=== PATIENT | female | born 1985 ===

== ENCOUNTER 2016-11-17 16:32 | Emergency (ER) | payer OTHER ==
[2016-11-17] MEDS ORDERED: Sodium Chloride 0.9% 1,000 ML IV STA (17:04)
--- NOTE | 2016-11-17 17:27 | ED PDOC ---
HPI: Abdomen Time Seen by Provider: 11/17/16 16:43 Chief Complaint (Nursing): Abdominal Pain Chief Complaint (Provider): Abdominal Pain History Per: Patient History/Exam Limitations: no limitations Onset/Duration Of Symptoms: Days (x2-3 days) Current Symptoms Are (Timing): Still Present Additional Complaint(s): Katerin Quiroga is a 30 [place]ber[place] old female who presents to the emergency department with a complaint of lower abdominal pain associated with nausea, vomiting, chills, and urine discomfort ongoing for 2-3 days. Denies any diarrhea or fevers. She was seen by her PCP at [facility] who advised her to go to the ED where she had bloodwork, CT ABD/Pelvis with contrast , and US of Pelvis done. All testings were negative except US which showed uterine fibroids. Patient was discharged with antibiotics which she is currently taking since yesterday but abdominal pain is still persistent. PMD: Fab Macias MD Past Medical History Reviewed: Historical Data, Nursing Documentation, Vital Signs Vital Signs: Last Vital Signs Temp 98.7 F 11/17/16 16:34 Pulse 68 11/17/16 16:34 Resp 18 11/17/16 16:34 BP 143/101 H 11/17/16 16:34 Pulse Ox 99 11/17/16 17:43 - Medical History PMH: No Chronic Diseases - Surgical History Surgical History: No Surg Hx - Family History Family History: States: Unknown Family Hx - Social History Current smoker - smoking cessation education provided: No Alcohol: None Drugs: Denies - Home Medications Home Medications: Ambulatory Orders Medication Instructions Recorded Naproxen [Naprosyn] 500 mg PO Q12H #20 tab 05/03/15 Naproxen [Naprosyn] 500 mg PO BID PRN #20 tablet 11/17/16 Phenazopyridine HCl [Pyridium] 100 mg PO TID #9 tab 11/17/16 - Allergies Allergies/Adverse Reactions: Allergies Allergy/AdvReac Type Severity Reaction Status Date / Time No Known Allergies Allergy Verified 05/03/15 15:08 Review of Systems ROS Statement: Except As Marked, All Systems Reviewed And Found Negative Constitutional: Positive for: Chills. Negative for: Fever Gastrointestinal: Positive for: Nausea, Vomiting (b8tbdtp in the last 24 hours) , Abdominal Pain (lower abdomen). Negative for: Diarrhea Genitourinary Female: Positive for: Dysuria (discomfort) Physical Exam - Reviewed Nursing Documentation Reviewed: Yes Vital Signs Reviewed: Yes - Physical Exam Appears: Positive for: Well, Non-toxic, No Acute Distress Head Exam: Positive for: ATRAUMATIC, NORMAL INSPECTION, NORMOCEPHALIC Skin: Positive for: Normal Color, Warm, Dry Neck: Positive for: Normal, Painless ROM, Supple Cardiovascular/Chest: Positive for: Regular Rate, Rhythm. Negative for: Murmur Respiratory: Positive for: Normal Breath Sounds. Negative for: Wheezing Gastrointestinal/Abdominal: Positive for: Normal Exam, Bowel Sounds, Tenderness (lower abdomen bilaterally) Pelvic Exam: Negative for: External Exam Normal (pain in pubic area) Back: Positive for: Normal Inspection. Negative for: L CVA Tenderness, R CVA Tenderness Extremity: Positive for: Normal ROM Neurologic/Psych: Positive for: Alert, Oriented - Laboratory Results Result Diagrams: 11/17/16 17:00 11/17/16 17:00 - ECG O2 Sat by Pulse Oximetry: 99 (RA) Pulse Ox Interpretation: Normal - Progress Re-evaluation Time: 18:10 Condition: Re-examined, Improving,but remains with symptoms Medical Decision Making Medical Decision Making: Initial Impression: Lower abdominal pain Initial Plan: * Labs * Lipase * Urine dipstick * Urine * Toradol 30mg IV * NS 1,000 ml IV per 1,000 mls/hr * Zofran Injection 4g IVP * Pyridium 100mg PO * Reevaluate ~ Scribe Attestation: Documented by Moon Paulino, acting as a scribe for Nemo Elliott MD. Provider Scribe Attestation: All medical record entries made by the Scribe were at my direction and personally dictated by me. I have reviewed the chart and agree that the record accurately reflects my personal performance of the history, physical exam, medical decision making, and the department course for this patient. I have also personally directed, reviewed, and agree with the discharge instructions and disposition. Disposition - Clinical Impression Clinical Impression: Abdominal pain, UTI (urinary tract infection) - Patient ED Disposition Is Patient to be Admitted: No Doctor Will See Patient In The: Office Counseled Patient/Family Regarding: Diagnosis, Need For Followup, Rx Given - Disposition [facility] [Outside] Disposition: Routine/Home Disposition Time: 18:12 Condition: IMPROVED Additional Instructions: continue with antibiotics prescribed by the doctor who saw you in the ER yesterday. Prescriptions: Naproxen [Naprosyn] 500 mg PO BID PRN #20 tablet PRN Reason: Pain, Moderate (4-7) Phenazopyridine HCl [Pyridium] 100 mg PO TID #9 tab Instructions: Urinary Tract Infection in Women (ED) Print Language: SERBIAN - POA Present On Arrival: None
[2016-11-17 17:28] LABS: BASO % 0.3 % (0.0-2.0); EOS % 0.2 % (0.0-4.0); LYMPH # 1.4 K/uL (1.0-4.3); MEAN CELL VOLUME 85.1 fl (81.0-99.0); MEAN CORPUSCULAR HEMOGLOBIN 27.5 pg (27.0-31.0); MEAN CORPUSCULAR HGB CONC 32.4 g/dL (33.0-37.0); MEAN PLATELET VOLUME 7.8 fl (7.2-11.7); MONO # 0.5 K/uL (0.0-0.8); MONO % 4.8 % (0.0-10.0); NEUT # 8.2 K/uL (1.8-7.0); NEUT % 80.7 % (50.0-75.0); RED CELL DISTRIBUTION WIDTH 14.1 % (11.5-14.5); WHITE BLOOD COUNT 10.2 K/uL (4.8-10.8)
[2016-11-17 17:37] LABS: ALB/GLOB RATIO 1.3 (1.0-2.1); ALKALINE PHOSPHATASE 105 U/L (38-126); ALT/SGPT 40 U/L (9-52); AST/SGOT 27 U/L (14-36); BILIRUBIN,TOTAL 0.5 mg/dl (0.2-1.3); BLOOD UREA NITROGEN 7 mg/dl (7-17); CALCIUM 9.2 mg/dL (8.4-10.2); CARBON DIOXIDE 26 mmol/L (22-30); CHLORIDE 104 mmol/L (98-107); GFR AFRICAN-AMERICAN > 60; GLUCOSE,RANDOM 100 mg/dL (65-105); LIPASE 61 U/L (23-300); POTASSIUM 3.7 MMOL/L (3.6-5.0); SODIUM 140 mmol/l (132-148); TOTAL PROTEIN 7.9 G/DL (6.3-8.2)
[2016-11-17 19:09] VITALS: BP 132/74; PULSE 85; RESP 19; TEMP 98.3; O2SAT 100
== END 2016-11-17 19:10 | disposition home or self-care (01) ==
LOC: H.ER 16:32
DX: N39.0 Urinary tract infection, site not specified (principal)

== ENCOUNTER 2017-04-16 13:07 | Emergency (ER) | payer SELFPAY ==
[2017-04-16 13:13] VITALS: RESP 16; TEMP 97.8; O2SAT 100
[2017-04-16] MEDS ORDERED: Oxycodone/Acetaminophen 5/325 mg Tab PO STA (13:26)
--- NOTE | 2017-04-16 13:36 | ED PDOC ---
HPI: Female Pain Time Seen by Provider: 04/16/17 13:16 Chief Complaint (Nursing): Female Genitourinary Chief Complaint (Provider): Vaginal Bleeding History Per: Patient History/Exam Limitations: no limitations Onset/Duration Of Symptoms: Days (x1) Current Symptoms Are (Timing): Still Present Additional Complaint(s): Katerin Quiroga is a 31 year old female with a history of fibroids and prior appendectomy that presents to the ED with a chief complaint of suprapubic pain and vaginal bleeding. Patient reports that she had her usual menses two weeks ago, but began to experience her pain and bleeding yesterday. Denies any other vaginal discharge. She reports that she is not filling any pads but just having vaginal bleeding that she notices when wiping. She states that she went to the [facility] today, who sent her to the ED for referral. Patient denies any fever, nausea, vomiting, constipation, dysuria, or hematuria, and reports that she has not taken any medication for her pain. Last Menstral Period: 2 wks ago Past Medical History Reviewed: Historical Data, Nursing Documentation, Vital Signs Vital Signs: Last Vital Signs Temp 97.8 F 04/16/17 13:10 Pulse 66 04/16/17 13:10 Resp 16 04/16/17 13:10 BP 155/107 H 04/16/17 13:10 Pulse Ox 100 04/16/17 13:10 - Medical History Other PMH: fibroids - Surgical History Surgical History: Appendectomy - Family History Family History: States: Unknown Family Hx - Allergies Allergies/Adverse Reactions: Allergies Allergy/AdvReac Type Severity Reaction Status Date / Time No Known Allergies Allergy Verified 04/16/17 13:10 Review of Systems ROS Statement: Except As Marked, All Systems Reviewed And Found Negative Constitutional: Negative for: Fever Cardiovascular: Negative for: Chest Pain Respiratory: Negative for: Cough, Shortness of Breath, SOB with Exertion Gastrointestinal: Positive for: Abdominal Pain (suprapubic pain). Negative for : Nausea, Vomiting, Diarrhea, Constipation Genitourinary Female: Positive for: Vaginal Bleeding. Negative for: Dysuria, Hematuria, Vaginal Discharge (no other discharge) Neurological: Negative for: Weakness, Numbness Physical Exam - Reviewed Nursing Documentation Reviewed: Yes Vital Signs Reviewed: Yes - Physical Exam Appears: Positive for: Non-toxic, No Acute Distress Head Exam: Positive for: ATRAUMATIC, NORMOCEPHALIC Skin: Positive for: Normal Color, Warm Eye Exam: Positive for: Normal appearance, EOMI, PERRL Cardiovascular/Chest: Positive for: Regular Rate, Rhythm. Negative for: Murmur Respiratory: Positive for: Normal Breath Sounds. Negative for: Wheezing Gastrointestinal/Abdominal: Positive for: Normal Exam, Soft. Negative for: Tenderness Neurologic/Psych: Positive for: Alert, Oriented. Negative for: Motor/Sensory Deficits - Laboratory Results Result Diagrams: 04/16/17 13:50 04/16/17 13:50 - ECG O2 Sat by Pulse Oximetry: 100 (RA) Pulse Ox Interpretation: Normal Medical Decision Making Medical Decision Making: Impression: Vaginal Bleeding. No urinary complaints. Plan: * CMP * CBC * PTT * PT * Urine Preg * Beta-HCG * Percocet 1 tab PO * Reevaluation test is negative, bleeding is likely secondary to fibroids. Will get hemoglobin to rule out anemia and then refer to TIMBER REPAIRER. 1:42PM Prior ultrasound showed fibroids. No urinary complaints. 2:33PM Hgb:12.7. Platelets and coagulation studies WNL. BHCG negative. Patient has hx of fibroids with recent ultrasound showing same. Patient reports persistent 10/10 pain. However, abdomen soft NT/ND. WIll order toradol and get u/s to r.o torsion. (hx of appendectomy) 3:12PM UA negative for nitrates but shows trace leukocytes. Denies dysuria. 5:08PM FINDINGS: UTERUS: Measures 12.4 x 6.0 x 5.7 cm. The uterus appears somewhat enlarged and is anteverted with an anterior fundal myoma identified bridging the sub serosal and submucous spaces measuring 5.0 x 4.9 x 4.0 cm. No additional myometrial lesions appreciable. No fibroid or other mass lesion seen. ENDOMETRIUM: Measures 6.0 mm in diameter. Unremarkable. CERVIX: Nabothian cysts identified the anterior cervix which is otherwise unremarkable. RIGHT OVARY: The right ovary is not identified, however, there are no suspicious right adnexal findings otherwise. LEFT OVARY: Measures 3.5 x 3.4 x 1.8 cm. No solid mass. Normal flow. FREE FLUID: No significant free fluid noted. OTHER FINDINGS: None. IMPRESSION: A 5.0 cm anterior fundal myoma is appreciated with the uterus otherwise unremarkable. Nonfocal endometrium. Cervical nabothian cysts identified. Unremarkable left ovary. Nonvisualized right ovary. Patient was made aware of ultrasound. On reevaluation, abdomen is soft NT/ND and she denies pain. She will follow-up with her securities clerk for painful and irregular menses. ---- Scribe Attestation: Documented by Svetlana Wolfe, acting as a scribe for Serene Reynolds MD. Provider Scribe Attestation: All medical record entries made by the Scribe were at my direction and personally dictated by me. I have reviewed the chart and agree that the record accurately reflects my personal performance of the history, physical exam, medical decision making, and the department course for this patient. I have also personally directed, reviewed, and agree with the discharge instructions and disposition. Disposition - Clinical Impression Clinical Impression: Uterine fibroid, Irregular menses, Painful menstrual flow - Disposition Referrals: [facility] PROVID[facility]ZIEL [Primary Care Provider[facility] - [facility] Disposition: Routine/Home Disposition Time: 17:11 Condition: GOOD Additional Instructions: Follow-up with senior auditor for further evaluation of painful and irregular menses within 1 week. Return to ED if condition worsens. Instructions: Uterine Fibroids (ED) Forms: [employer] (Uzbek)
[2017-04-16 14:19] LABS: BASO % 0.4 % (0.0-2.0); EOS # 0.1 K/uL (0.0-0.7); EOS % 0.9 % (0.0-4.0); LYMPH # 1.4 K/uL (1.0-4.3); MEAN CELL VOLUME 86.3 fl (81.0-99.0); MEAN CORPUSCULAR HGB CONC 32.5 g/dL (33.0-37.0); MEAN PLATELET VOLUME 8.1 fl (7.2-11.7); MONO # 0.4 K/uL (0.0-0.8); MONO % 5.2 % (0.0-10.0); NEUT # 5.8 K/uL (1.8-7.0); NEUT % 75.5 % (50.0-75.0); RED CELL DISTRIBUTION WIDTH 13.9 % (11.5-14.5); WHITE BLOOD COUNT 7.7 K/uL (4.8-10.8)
[2017-04-16 14:27] LABS: ALB/GLOB RATIO 1.1 (1.0-2.1); ALKALINE PHOSPHATASE 87 U/L (38-126); ALT/SGPT 30 U/L (9-52); AST/SGOT 18 U/L (14-36); BILIRUBIN,TOTAL 0.2 mg/dl (0.2-1.3); BLOOD UREA NITROGEN 12 mg/dl (7-17); CALCIUM 8.4 mg/dL (8.4-10.2); CARBON DIOXIDE 27 mmol/L (22-30); CHLORIDE 106 mmol/L (98-107); GFR AFRICAN-AMERICAN > 60; GLUCOSE,RANDOM 82 mg/dL (65-105); POTASSIUM 3.7 MMOL/L (3.6-5.0); SODIUM 140 mmol/l (132-148)
[2017-04-16 14:31] LABS: PARTIAL THROMBOPLASTIN TIME 25.3 Seconds (25.6-37.1)
--- NOTE | 2017-04-16 17:08 | US ---
HISTORY: vaginal bleeding, suprapubic pain COMPARISON: Abdomen pelvis CT examination 12/27/2011. TECHNIQUE: Transabdominal and transvaginal pelvic ultrasound were performed with longitudinal and transverse images submitted for interpretation. FINDINGS: UTERUS: Measures 12.4 x 6.0 x 5.7 cm. The uterus appears somewhat enlarged and is anteverted with an anterior fundal myoma identified bridging the sub serosal and submucous spaces measuring 5.0 x 4.9 x 4.0 cm. No additional myometrial lesions appreciable. No fibroid or other mass lesion seen. ENDOMETRIUM: Measures 6.0 mm in diameter. Unremarkable. CERVIX: Nabothian cysts identified the anterior cervix which is otherwise unremarkable. RIGHT OVARY: The right ovary is not identified, however, there are no suspicious right adnexal findings otherwise. LEFT OVARY: Measures 3.5 x 3.4 x 1.8 cm. No solid mass. Normal flow. FREE FLUID: No significant free fluid noted. OTHER FINDINGS: None. IMPRESSION: A 5.0 cm anterior fundal myoma is appreciated with the uterus otherwise unremarkable. Nonfocal endometrium. Cervical nabothian cysts identified. Unremarkable left ovary. Nonvisualized right ovary.
[2017-04-16 17:14] VITALS: BP 135/80; PULSE 75
== END 2017-04-16 17:33 | disposition home or self-care (01) ==
LOC: H.ER 13:07
DX: D25.9 Leiomyoma of uterus, unspecified (principal); N88.8 Other specified noninflammatory disorders of cervix uteri
CPT/HCPCS: 76830; 80053; 81025; 84702; 85025; 85610; 85730; 96374; 99282; J1885

== ENCOUNTER 2017-08-02 09:02 | Emergency (ER) | payer SELFPAY ==
--- NOTE | 2017-08-02 09:51 | ED PDOC ---
HPI: Female Pain Time Seen by Provider: 08/02/17 09:15 History Per: Patient Onset/Duration Of Symptoms: Other (2 weeks) Current Symptoms Are (Timing): Still Present Severity: Moderate Pain Scale Rating Of: 3 Quality Of Discomfort: Cramping Associated Symptoms: denies: Fever, Nausea, Vomiting, Diarrhea, Urinary Symptoms Additional Complaint(s): Right flank and right pel ajit pain x 2 weeks. No NVD. No urinary sxs. Assoc with vaginal bleeding. Sxs x 2 weeks Abnormal Vaginal Bleeding: Yes Past Medical History - Medical History Other PMH: fibroids - Surgical History Surgical History: Appendectomy - Family History Family History: States: Unknown Family Hx - Home Medications Home Medications: Ambulatory Orders Medication Instructions Recorded Ciprofloxacin HCl [Cipro] 500 mg PO BID #20 tab 08/02/17 Naproxen [Naprosyn] 500 mg PO Q12H #20 tab 08/02/17 Tamsulosin [Flomax] 0.4 mg PO DAILY #5 cap 08/02/17 - Allergies Allergies/Adverse Reactions: Allergies Allergy/AdvReac Type Severity Reaction Status Date / Time No Known Allergies Allergy Verified 04/16/17 13:10 Review of Systems Constitutional: Negative for: Fever Gastrointestinal: Positive for: Abdominal Pain Genitourinary Female: Positive for: Vaginal Bleeding. Negative for: Dysuria, Frequency Musculoskeletal: Positive for: Back Pain Physical Exam - Physical Exam Appears: Positive for: Non-toxic, No Acute Distress Skin: Positive for: Normal Color, Warm, DRY Gastrointestinal/Abdominal: Positive for: Bowel Sounds, Soft, Tenderness (right lower quad) Pelvic Exam: Positive for: External Exam Normal, No Cerv. Motion Tender, Blood ( scant blood), Other (enlarged irregular uterus). Negative for: Tender Adnexa - Laboratory Results Result Diagrams: 08/02/17 10:20 08/02/17 10:20 Medical Decision Making Medical Decision Making: Tolerating PO, non toxic, no evidence of sepsis or abnormality of kidneys on CT. Disposition - Clinical Impression Clinical Impression: UTI (urinary tract infection), Uterine fibroid, Kidney stones - Patient ED Disposition Is Patient to be Admitted: No Counseled Patient/Family Regarding: Studies Performed, Diagnosis, Need For Followup, Rx Given - Disposition Referrals: [facility] [Outside] Brodie Brian MD [Medical Doctor] - Disposition: Routine/Home Disposition Time: 17:11 Condition: FAIR Prescriptions: Ciprofloxacin HCl [Cipro] 500 mg PO BID #20 tab Naproxen [Naprosyn] 500 mg PO Q12H #20 tab Tamsulosin [Flomax] 0.4 mg PO DAILY #5 cap Instructions: Uterine Fibroids, Renal Colic, Urinary Tract Infections in Adults
[2017-08-02 10:05] VITALS: RESP 18
[2017-08-02 10:31] LABS: BASO % 0.6 % (0.0-2.0); EOS # 0.1 K/uL (0.0-0.7); HEMOGLOBIN 12.9 g/dL (12.0-16.0); LYMPH # 1.5 K/uL (1.0-4.3); LYMPH % 24.3 % (20.0-40.0); MEAN CELL VOLUME 84.3 fl (81.0-99.0); MEAN CORPUSCULAR HEMOGLOBIN 28.4 pg (27.0-31.0); MEAN CORPUSCULAR HGB CONC 33.7 g/dL (33.0-37.0); MEAN PLATELET VOLUME 8.2 fl (7.2-11.7); MONO # 0.4 K/uL (0.0-0.8); MONO % 5.8 % (0.0-10.0); NEUT # 4.3 K/uL (1.8-7.0); NEUT % 68.3 % (50.0-75.0); RBC 4.55 Mil/uL (3.80-5.20); WHITE BLOOD COUNT 6.3 K/uL (4.8-10.8)
[2017-08-02 10:54] LABS: ALB/GLOB RATIO 1.1 (1.0-2.1); ALBUMIN 3.7 g/dL (3.5-5.0); ALT/SGPT 23 U/L (9-52); AST/SGOT 24 U/L (14-36); BLOOD UREA NITROGEN 12 mg/dl (7-17); CALCIUM 9.3 mg/dL (8.4-10.2); GFR AFRICAN-AMERICAN > 60; GFR NON-AFRICAN AMERICAN > 60
[2017-08-02 11:19] LABS: SQUAMOUS EPITHIAL 196 /hpf (0-5); URINE BACTERIA MANY (<OCC); URINE BILIRUBIN NEGATIVE (NEGATIVE); URINE BLOOD MODERATE (NEGATIVE); URINE CLARITY TURBID (Clear); URINE COLOR YELLOW (YELLOW); URINE GLUCOSE (UA) NEG (Normal); URINE LEUKOCYTE ESTERASE MOD Leu/uL (Negative); URINE PROTEIN >=500 mg/dL (NEGATIVE); URINE UROBILINOGEN 0.2-1.0 mg/dL (0.2-1.0)
--- NOTE | 2017-08-02 11:20 | US ---
HISTORY: fibroids COMPARISON: Pelvic ultrasonography 04/16/2017. TECHNIQUE: Transabdominal and transvaginal pelvic ultrasound was performed with longitudinal and transverse images submitted for interpretation. FINDINGS: UTERUS: Measures 12.0 x 8.6 x 5.5 cm. Uterus is enlarged and anteverted with a large myoma again identified at the anterior fundus measuring 5.4 x 5.9 x 5.8 cm, and previously measuring 5.1 x 4.9 x 4.2 cm. The remainder of the myometrium is unremarkable. ENDOMETRIUM: Measures 7.5 mm in diameter. Unremarkable. CERVIX: Nabothian cysts are reiterated. RIGHT OVARY: Measures 3.2 x 2.3 x 2.0 cm. No solid mass. Normal flow. No suspicious findings. LEFT OVARY: Not identified with the left adnexal compartment obscured by overlying bowel as well as uterine fibroid changes. FREE FLUID: No significant free fluid noted. OTHER FINDINGS: None. IMPRESSION: A large anterior fundal myoma is slightly increased in size with an enlarged uterus again seen secondarily. Left adnexal compartment is obscured with left ovary not identified. The right ovary appears unremarkable.
[2017-08-02 15:51] LABS: VENOUS BLOOD GAS BASE EXCESS 1.9 mmol/L (0.0-2.0); VENOUS BLOOD GAS PCO2 41 mmHg (40-60); VENOUS BLOOD GAS PO2 40 mm/Hg (30-55); VENOUS BLOOD PH 7.42 (7.32-7.43)
--- NOTE | 2017-08-02 16:20 | CT ---
PROCEDURE: CT Abdomen and Pelvis without intravenous contrast HISTORY: pyelonephritis COMPARISON: Abdomen pelvis CT examination with contrast 07/20/2013 as well as 12/27/2011. TECHNIQUE: Helical CT of the abdomen and pelvis was performed without oral or intravenous contrast as per referring physician request.. Contrast Dose: None Radiation dose: Total exam DLP = 628.31 mGy-cm. This CT exam was performed using one or more of the following dose reduction techniques: Automated exposure control, adjustment of the mA and/or kV according to patient size, and/or use of iterative reconstruction technique. FINDINGS: LOWER THORAX: Cardiac volume appears enlarged mildly, but stable. LIVER: A stable tiny lucencies is seen at the dome of the liver. Unenhanced liver is otherwise unremarkable with prior enhancing lesion at the watershed region of the anterior liver not appreciated at this time. GALLBLADDER AND BILE DUCTS: Unremarkable. PANCREAS: Unremarkable. No gross lesion or ductal dilatation. SPLEEN: Unremarkable. ADRENALS: Unremarkable. No mass. KIDNEYS AND URETERS: Infrequent punctate intrarenal calculi identified both kidneys with 1 at the mid to lower pole right kidney and 2 at the upper pole left kidney. No obstructive uropathy identified bilaterally or perinephric reaction. VASCULATURE: Unremarkable. No aortic aneurysm. BOWEL: The bowel is nonobstructed. The stomach is distended with retained food. Limited fecal loading is seen throughout the large bowel. Postoperative changes are seen involving the cecum and distal ileum. The appendix is not identified. Consider possible prior appendectomy and potentially other bowel surgery. APPENDIX: See the section immediately above. PERITONEUM: Unremarkable. No free fluid. No free air. LYMPH NODES: Unremarkable. No enlarged lymph nodes. BLADDER: Unremarkable. REPRODUCTIVE: Unremarkable. BONES: No acute fracture. OTHER FINDINGS: None. IMPRESSION: No definite acute abdominal findings including bilateral kidneys which exhibit a few intrarenal calculi in each kidney but no perinephric reaction in this unenhanced examination. Further characterization of the abdominal and pelvic viscera can be provided by contrast CT as clinically warranted. Further clinical correlation is advised. Prior hepatic lesion not identified on this unenhanced examination which is not indicate resolution necessarily.
[2017-08-02 18:06] VITALS: BP 120/78; PULSE 70; TEMP 98.8; O2SAT 99
== END 2017-08-02 18:06 | disposition home or self-care (01) ==
LOC: H.ER 09:02
DX: N39.0 Urinary tract infection, site not specified (principal); D25.9 Leiomyoma of uterus, unspecified; N20.0 Calculus of kidney
CPT/HCPCS: 74176; 76830; 76856; 80053; 81003; 81025; 82803; 85025; 87040; 87086; 96365; 96375; 99283; J0696; J1885

== ENCOUNTER 2017-11-25 06:16 | Inpatient (IN) | payer BC, SELFPAY ==
[2017-11-24 09:52] VITALS: BMI 28.1
[2017-11-24 10:56] LABS: BASO % 0.6 % (0.0-2.0); EOS # 0.1 K/uL (0.0-0.7); HEMOGLOBIN 11.3 g/dL (12.0-16.0); LYMPH # 1.3 K/uL (1.0-4.3); LYMPH % 27.3 % (20.0-40.0); MEAN CELL VOLUME 80.7 fl (81.0-99.0); MEAN CORPUSCULAR HEMOGLOBIN 25.9 pg (27.0-31.0); MEAN CORPUSCULAR HGB CONC 32.1 g/dL (33.0-37.0); MEAN PLATELET VOLUME 7.8 fl (7.2-11.7); MONO # 0.3 K/uL (0.0-0.8); MONO % 7.2 % (0.0-10.0); NEUT % 62.9 % (50.0-75.0); RBC 4.38 Mil/uL (3.80-5.20); RED CELL DISTRIBUTION WIDTH 15.1 % (11.5-14.5); WHITE BLOOD COUNT 4.8 K/uL (4.8-10.8)
[2017-11-24 11:11] LABS: ALB/GLOB RATIO 1.2 (1.0-2.1); ALBUMIN 4.1 g/dL (3.5-5.0); ALT/SGPT 37 U/L (9-52); AST/SGOT 26 U/L (14-36); BLOOD UREA NITROGEN 13 mg/dl (7-17); CALCIUM 9.1 mg/dL (8.4-10.2); GFR AFRICAN-AMERICAN > 60; GFR NON-AFRICAN AMERICAN > 60
[2017-11-24 11:14] LABS: PARTIAL THROMBOPLASTIN TIME 28.2 Seconds (25.6-37.1); PROTHROMBIN TIME 10.8 Seconds (9.8-13.1)
--- NOTE | 2017-11-24 13:59 | CARD ---
APPROVED REPORT EKG Measurement Heart [id number] <Conclusion> Sinus bradycardia Otherwise normal ECG
[2017-11-25] MEDS ORDERED: Propofol 10 mg/ml Inj (20 ML) ONE (07:12)
[2017-11-25] MEDS ORDERED: ePHEDrine 50 mg/ml Inj ONE (07:12)
[2017-11-25] MEDS ORDERED: Rocuronium 10 mg/ml (5 ml) ONE ×2 (07:12→09:25)
[2017-11-25] MEDS ORDERED: Midazolam 2 MG/2 ML VIAL ONE (07:12)
[2017-11-25] MEDS ORDERED: Phenylephrine 10 mg/ml Inj ONE ×2 (07:13→07:23)
[2017-11-25] MEDS ORDERED: Bupivacaine HCl 0.25% PF (30 ml) Inj ONE (07:18)
[2017-11-25] MEDS ORDERED: Neostigmine 1:1000 (1 mg/ml) Inj ONE (07:22)
[2017-11-25] MEDS ORDERED: Succinylcholine 200 mg/10 ml Inj IV ONE (07:22)
[2017-11-25] MEDS ORDERED: Sevoflurane - Inhalation Anesthetic Liq (250 ml) ONE (07:23)
[2017-11-25] MEDS ORDERED: Desflurane Inhalation Anesthetic Liq (240 ml) ONE (07:23)
[2017-11-25] MEDS ORDERED: Lactated Ringer's 1,000 ML IV ONE ×2 (08:00→08:10)
[2017-11-25] MEDS ORDERED: Morphine 1 mg/ml preservative-free Inj(Duramorph) ONE (08:21)
[2017-11-25] MEDS ORDERED: Sterile Water 10 ML IV ONE (08:24)
[2017-11-25] MEDS ORDERED: Naloxone 0.4 mg/ml Inj (Adult) IVP PRN (10:21)
[2017-11-25] MEDS ORDERED: Oxycodone/Acetaminophen 5/325 mg Tab PO PRN (10:24)
[2017-11-25] MEDS: HYDROmorphone 0.5 mg/0.5 ml ISec IVP PRN ×3 (10:45→11:45)
[2017-11-25] MEDS: Lactated Ringer's 1,000 ML IV SCH ×2 (12:30→18:35)
--- NOTE | 2017-11-26 02:36 | OP ---
PROCEDURE DATE: 11/25/2017 PREOPERATIVE DIAGNOSES: Symptomatic fibroid uterus, menorrhagia, pelvic pain, and 2 previous sections. POSTOPERATIVE DIAGNOSES: Symptomatic fibroid uterus, menorrhagia, pelvic pain, and 2 previous sections. OPERATIONS PERFORMED: Robotic hysterectomy, cystoscopy with stent placement, ureterolysis. SURGEON: Emily Schaefer MD ASSEMBLER WIRE MESH GATE: Russell Nunez MD, who was helpful in taking care of the patient, creating exposure, obtaining hemostasis, and extraction of the specimen. The procedure would not have been possible without his assistance. OPERATIVE FINDINGS: A large irregular uterus with a prominent fundal myoma, anterior bladder adhesions secondary to previous cesarian deliveries. Normal ovaries and tubes that have been previously transected. DESCRIPTION OF PROCEDURE: After informed consent was obtained, the patient was taken to the operating room where she was given general anesthesia. She was then prepped and draped in a normal sterile fashion. The patient was placed in [place] stirrups, prepped and draped in a normal sterile fashion. Attention was then turned to urethra, where the cystoscope was inserted. Both right and left ureter were identified. The right ureter was then stented and indocyanine green was injected into the right ureter. Similar procedure was performed on the left. This was done in anticipation of the patient's two previous surgeries and a history of extensive abdominal adhesions from previous surgeon. A speculum was then inserted into vaginal. The cervix was visualized and grasped with a single tooth tenaculum. The cervix was gently dilated and a V-care uterine manipulator was inserted into the uterine cavity as a means to manipulate the uterus. Attention was then turned to the urethra, which in similar fashion, a Rosado catheter was inserted to monitor the patient's urinary output. Attention was then turned to the abdomen, approximately an 8 mm incision was made superior to the umbilicus. The abdomen was then tented upward and the Veress needle was inserted. Placement was confirmed with a fluid-filled syringe. The abdomen was then insufflated and an 8 mm robotic port was introduced into the abdominal cavity. Placement was confirmed with laparoscope. The abdomen was then surveyed with the findings noted above. Attention was then turned to approximately 5 cm superior to the right anterior iliac crest. Marcaine was infused, and an 8 mm incision was made, and a robotic port was introduced to the abdominal cavity. A similar procedure was performed on the left. Approximately 10 cm right and lateral to the umbilicus, an 8 mm incision was made and an 8 mm robotic port was introduced to the abdominal cavity. Then, a 5 mm incision was made approximately 10 cm left and lateral to the umbilicus. The patient was then placed in steep Trendelenburg, the bowel was swept away. The patient was docked to the robot. I broke scrub and proceeded to the surgical console. The instruments used for the surgery were PK dissector, Sagar SutureCut, scissor, and a needle driver/refuse collector. I then proceeded to the left utero-ovarian ligament where we serially coagulated and transected with the scissors. Attention was then turned to the right round ligament in a similar fashion, it was serially coagulated, and transected with the scissors. The vesicouterine peritoneum was then undermined with PK dissector and transected with the scissors. As I approached the V-Care cup anteriorly, we identified dense adhesions from her previous cesarian delivery. We then proceeded posteriorly on the uterus, we attempted to undermined the peritoneum with PK dissector ad encountered fibrotic tissue and transected it down at the level of the V-Care cup. The uterosacral ligament was serially coagulated and transected. There were adhesions, which were lysed using both sharp and blunt dissection. Attention was then turned to the ureters. Firefly technology was activated. The ureter was identified. The peritoneum was then grasped with the PK dissector and entered sharply with the scissors. The retroperitoneal space was then entered and the ureteral course was dissected and the ureter was pushed away laterally down to the uterine arteries .We then paid attention to the uterine arteries. They were serially coagulated and transected, taking care not to injure the ureter. Attention was then turned to the right side of the uterus, which in similar fashion, the utero-ovarian ligament was serially coagulated, and transected. The round ligament was then identified, serially coagulated and transected. The vesicouterine peritoneum was identified, undermined with the PK dissector and cut with the scissors anteriorly, more bladder adhesions were identified. They were meticulously dissected away using both sharp and blunt dissection. Attention was then turned to the posterior aspect of the uterus. The peritoneum was undermined at the level of V-Care cup and transected with the scissors. Attention was then turned, the Firefly technology was then activated. The right ureter was identified. The peritoneum was tented upward and entered sharply with the scissors. The course of the ureter down towards the uterine artery was gently dissected out and the ureter was pushed away laterally. We then serially coagulated the uterine arteries, and they were transected with the scissors. The V-Care cup was then identified anteriorly, posteriorly and laterally. Due to the large size of the specimen, the fundal myoma was removed using both sharp and blunt dissection. We then made a colpotomy incision, the uterus and cervix were amputated from the vagina. The uterus was delivered vaginally. The fundal myoma was then delivered vaginally. The cuff was closed with 2-0 barbed suture in a running fashion. The abdomen was then copiously irrigated. The irrigant was removed with a suction device. Hemostasis was noted. All instruments were then removed from the abdomen. The incisions were repaired with 3-0 Biosyn and Dermabond. All sponge, lap, needle, and instrument counts were correct x2 and the patient was taken to the recovery room in awake and stable condition. Emily Schaefer MD JENNY
[2017-11-26 07:57] LABS: HEMOGLOBIN 10.3 g/dL (12.0-16.0); MEAN CELL VOLUME 80.1 fl (81.0-99.0); MEAN CORPUSCULAR HEMOGLOBIN 26.4 pg (27.0-31.0); MEAN CORPUSCULAR HGB CONC 32.9 g/dL (33.0-37.0); RBC 3.91 Mil/uL (3.80-5.20); RED CELL DISTRIBUTION WIDTH 14.9 % (11.5-14.5); WHITE BLOOD COUNT 7.1 K/uL (4.8-10.8)
--- NOTE | 2017-11-26 09:11 | CP.SDSHP ---
Same Day Surgery H & P - Allergies Allergies: Allergies No Known Allergies Allergy (Verified 11/25/17 07:13) - Physical Exam Vital Signs: Vital Signs 11/26/17 11/26/17 11/26/17 02:00 03:00 04:00 Temperature Pulse Rate Respiratory 14 15 15 Rate Blood Pressure O2 Sat by Pulse Oximetry 11/26/17 11/26/17 11/26/17 05:00 06:00 08:44 Temperature 99.3 F 98.6 F Pulse Rate 71 68 Respiratory 16 18 15 Rate Blood Pressure 115/70 111/73 O2 Sat by Pulse 100 100 Oximetry Short Stay Discharge - Short Stay Discharge Admitting Diagnosis/Reason for Visit: D25.9/ R10.2/ Referrals: Fab Macias MD [Primary Care Provider] - Additional Instructions (Diet, Activity): doing well d/c home f/u with Silvano in 1 weks NPV no heavy lifting
[2017-11-26 13:19] VITALS: BP 115/67; PULSE 73; RESP 16; TEMP 98.9; O2SAT 98
== END 2017-11-26 15:00 | disposition home or self-care (01) | DRG 743 ==
LOC: H.OPSURG 06:16 → H.PEDS 10:41
PROVIDERS: ADMIT Obstetrics & Gynecology Gynecology; ATTEND Obstetrics & Gynecology Gynecology
PROC: 8E0W4CZ Robotic Assisted Procedure of Trunk Region, Percutaneous Endoscopic Approach (ICD-10-PCS; 2017-11-25)
PROC: 0UT9FZZ Resection of Uterus, Via Natural or Artificial Opening With Percutaneous Endoscopic Assistance (ICD-10-PCS; principal; 2017-11-25 07:45)
PROC: 0UB97ZZ Excision of Uterus, Via Natural or Artificial Opening (ICD-10-PCS; 2017-11-25 07:45)
DX: D25.9 Leiomyoma of uterus, unspecified (principal); N92.0 Excessive and frequent menstruation with regular cycle; N32.89 Other specified disorders of bladder

== ENCOUNTER 2017-12-11 01:16 | Emergency (ER) | payer BC, SELFPAY ==
[2017-12-11 01:16] VITALS: BMI 28.1
[2017-12-11] MEDS ORDERED: Sodium Chloride 0.9% 1,000 ML IV STA (02:05)
--- NOTE | 2017-12-11 02:16 | ED PDOC ---
HPI: Abdomen Time Seen by Provider: 12/11/17 01:58 Chief Complaint (Nursing): Abdominal Pain Chief Complaint (Provider): abdominal pain History Per: Patient History/Exam Limitations: no limitations Onset/Duration Of Symptoms: Days (x2 weeks) Current Symptoms Are (Timing): Still Present Location Of Pain/Discomfort: Other (lower abdominal) Associated Symptoms: Back Pain. denies: Nausea, Vomiting, Diarrhea Additional Complaint(s): Katerin Quiroga is a 32 year old female, with a past medical history of HTN, uterine fibroids s/p hysterectomy done at this facility on November 25, who presents to the emergency department for evaluation of intermittent lower abdominal pain that radiates to her back onset for x2 weeks. Patient reports she has noticed some blood in her urine on occasions. She denies any nausea, vomit, diarrhea or other medical complaints. PMD: Dr. Cedric Macias OBGYN: Dr. Schaefer Past Medical History Reviewed: Historical Data, Nursing Documentation, Vital Signs Vital Signs: Last Vital Signs Temp 99.0 F 12/11/17 01:37 Pulse 82 12/11/17 01:37 Resp 16 12/11/17 01:37 BP 114/80 12/11/17 01:37 Pulse Ox 98 12/11/17 06:06 - Medical History PMH: Anemia, HTN, Kidney Stones (4 moths ago), Chronic Kidney Disease Other PMH: uterine fibroids - Surgical History Surgical History: Appendectomy Other surgeries: hysterectomy - Family History Family History: States: Unknown Family Hx - Social History Current smoker - smoking cessation education provided: No Alcohol: None Drugs: Denies - Home Medications Home Medications: Ambulatory Orders Medication Instructions Recorded Ibuprofen [Advil] 200 mg PO DAILY PRN 11/25/17 amLODIPine [Norvasc] 5 mg PO DAILY 11/25/17 levoFLOXacin [Levaquin] 500 mg PO DAILY #14 tab 12/11/17 traMADol [Ultram] 50 mg PO Q6 PRN #12 tab 12/11/17 - Allergies Allergies/Adverse Reactions: Allergies Allergy/AdvReac Type Severity Reaction Status Date / Time No Known Allergies Allergy Verified 11/25/17 07:13 Review of Systems ROS Statement: Except As Marked, All Systems Reviewed And Found Negative Gastrointestinal: Positive for: Abdominal Pain (lower ). Negative for: Nausea, Vomiting, Diarrhea Physical Exam - Reviewed Nursing Documentation Reviewed: Yes Vital Signs Reviewed: Yes - Physical Exam Appears: Positive for: Uncomfortable Head Exam: Positive for: ATRAUMATIC, NORMAL INSPECTION, NORMOCEPHALIC Skin: Positive for: Normal Color, Warm, Dry Eye Exam: Positive for: Normal appearance, EOMI, PERRL Neck: Positive for: Painless ROM Cardiovascular/Chest: Positive for: Regular Rate, Rhythm. Negative for: Murmur Respiratory: Positive for: Normal Breath Sounds. Negative for: Respiratory Distress Gastrointestinal/Abdominal: Positive for: Tenderness (suprapubic) Back: Positive for: Normal Inspection. Negative for: L CVA Tenderness, R CVA Tenderness, Vertebral Tenderness Extremity: Positive for: Normal ROM (upper and lower extremities). Negative for : Deformity, Swelling Neurologic/Psych: Positive for: Alert, Oriented - Laboratory Results Result Diagrams: 12/11/17 02:50 12/11/17 02:50 - ECG O2 Sat by Pulse Oximetry: 98 (RA) Pulse Ox Interpretation: Normal Medical Decision Making Medical Decision Making: Time: 01:58 Initial Impression: 32 y/o female with lower abdominal pain Initial Plan: --Abd & Pelvis w/o contrast [CT] --CMP --Urine dipstick --CBC w/ differential --Sodium Chloride 1,000 ml IV 1,000 mls/hr --Toradol 30 mg IV --Urinalysis --Reevaluation 04:38 Abdomen/Pelvis CT FINDINGS: Lung bases: Unremarkable. Heart: Small right pericardial effusion. ABDOMEN: Liver: There is a focal liver hypodensity that cannot be further characterized on the current examination. Gallbladder and bile ducts: Contracted gallbladder with gallbladder wall thickening. Pancreas: Unremarkable. No ductal dilation. Spleen: Unremarkable. No splenomegaly. Adrenals: Unremarkable. No mass. Kidneys and ureters: Nonobstructive bilateral renal stones. No obstructing stones. Stomach and bowel: Diverticulosis with reactive infiltration around the sigmoid colon representing reactive versus infectious or inflammatory diverticulitis/colitis. There is duodenal diverticulum. Gastric distention likely due to recent ingestion versus delayed emptying. Sigmoid postoperative changes. Diverticulosis. PELVIS: Appendix: The appendix not identified with complete certainty due to unopacified cecum and distal small bowel. There is lack of intra-abdominal fat. If clinical concern remains, a repeat study with thin sections after an appropriate time interval may allow oral contrast to opacify the cecum. Bladder: Partially distended bladder 11.4 cm with bladder wall thickening with perivesical infiltration. Correlation with urinalysis is recommended only if clinical cystitis is suspected. Physiologic distention of the ureters Reproductive: Interval hysterectomy with pelvic inflammatory change and fluid. Correlation with patient's surgical history is recommended. High riding bilateral ovaries with left ovarian hypodense cysts measuring 3.0 cm. ABDOMEN and PELVIS: Intraperitoneal space: Unremarkable. No free air. No significant fluid collection. Bones/joints: L5-S1 disc osteophyte complex. There is sacrum is located in midline pelvis. No acute fracture. No dislocation. Soft tissues: Unremarkable. Vasculature: Pelvic phleboliths. No abdominal aortic aneurysm. Lymph nodes: Subcentimeter mesenteric lymph nodes. IMPRESSION: 1. Interval hysterectomy with pelvic inflammatory change and fluid. Correlation with patient's surgical history /peritonitis is recommended. 2. High riding bilateral ovaries with left ovarian hypodense cysts measuring 3.0 cm. 3. Diverticulosis with reactive infiltration around the sigmoid colon representing reactive versus infectious or inflammatory diverticulitis/colitis. Correlation with internal medicine /gynecology surgical history expectation in evaluation and further workup or followup as recommended by patient's clinical data. 06:18 -Labs reviewed they showed no clinical significant abnormalities except for the UA indicative of UTI. 06:20 -Patient reports improvement of symptoms. Upon reevaluation patient is medically stable for discharge, diagnosis UTI. Advised patient to follow up scheduled appointment with ROSANNA Brown, on 12/26. ----- Scribe Attestation: Documented by Sanjiv Schaeffer, acting as a scribe for Feliciano Hernandez MD. Provider Scribe Attestation: All medical record entries made by the Scribe were at my direction and personally dictated by me. I have reviewed the chart and agree that the record accurately reflects my personal performance of the history, physical exam, medical decision making, and the department course for this patient. I have also personally directed, reviewed, and agree with the discharge instructions and disposition. Disposition - Clinical Impression Clinical Impression: Abdominal pain in female, Urinary tract infection - Disposition Disposition: Routine/Home Disposition Time: 06:20 Condition: STABLE Prescriptions: levoFLOXacin [Levaquin] 500 mg PO DAILY #14 tab traMADol [Ultram] 50 mg PO Q6 PRN #12 tab PRN Reason: abdominal pain Instructions: Urinary Tract Infections in Adults Forms: [facility] ([place]) Print Language: ARMENIAN
[2017-12-11 03:04] LABS: BASO # 0.1 K/uL (0.0-0.2); BASO % 0.8 % (0.0-2.0); EOS # 0.1 K/uL (0.0-0.7); EOS % 1.8 % (0.0-4.0); HEMOGLOBIN 10.8 g/dL (12.0-16.0); LYMPH # 1.6 K/uL (1.0-4.3); MEAN CELL VOLUME 79.1 fl (81.0-99.0); MEAN CORPUSCULAR HEMOGLOBIN 26.5 pg (27.0-31.0); MEAN CORPUSCULAR HGB CONC 33.5 g/dL (33.0-37.0); MONO # 0.6 K/uL (0.0-0.8); MONO % 8.2 % (0.0-10.0); NEUT # 4.5 K/uL (1.8-7.0); NEUT % 66.2 % (50.0-75.0); RBC 4.07 Mil/uL (3.80-5.20); RED CELL DISTRIBUTION WIDTH 15.2 % (11.5-14.5); WHITE BLOOD COUNT 6.8 K/uL (4.8-10.8)
[2017-12-11 03:10] LABS: SQUAMOUS EPITHIAL 2 /hpf (0-5); URINE BACTERIA RARE (<OCC); URINE BILIRUBIN NEGATIVE (NEGATIVE); URINE BLOOD SMALL (NEGATIVE); URINE CLARITY SLIGHTY-CLOUDY (Clear); URINE COLOR YELLOW (YELLOW); URINE GLUCOSE (UA) NEG (Normal); URINE LEUKOCYTE ESTERASE LARGE Leu/uL (Negative); URINE PROTEIN NEGATIVE (NEGATIVE)
[2017-12-11 03:18] LABS: ALB/GLOB RATIO 1.2 (1.0-2.1); ALT/SGPT 22 U/L (9-52); AST/SGOT 19 U/L (14-36); BLOOD UREA NITROGEN 13 mg/dl (7-17); CALCIUM 9.1 mg/dL (8.4-10.2); GFR AFRICAN-AMERICAN > 60; GFR NON-AFRICAN AMERICAN > 60
[2017-12-11] MEDS ORDERED: cefTRIAXone (Rocephin) 1 gm Inj ONE (06:33)
[2017-12-11 07:39] VITALS: BP 119/84; PULSE 79; RESP 19; TEMP 98.4; O2SAT 99
--- NOTE | 2017-12-11 10:48 | CT ---
Date of service: 12/11/2017 PROCEDURE: CT Abdomen and Pelvis without intravenous contrast HISTORY: Renal colic COMPARISON: None. TECHNIQUE: Standard CT scan abdomen pelvis performed without contrast Radiation dose: Total exam DLP = 497.62 mGy-cm. This CT exam was performed using one or more of the following dose reduction techniques: Automated exposure control, adjustment of the mA and/or kV according to patient size, and/or use of iterative reconstruction technique. FINDINGS: LOWER THORAX: Unremarkable. LIVER: There is an approximately 6 mm normal rounded low-attenuation focus seen in the dome of the liver consistent with small cyst. PANCREAS: Unremarkable. No gross lesion or ductal dilatation. SPLEEN: Unremarkable. ADRENALS: Unremarkable. No mass. KIDNEYS AND URETERS: Small 3.4 mm nonobstructing calculus midpole left kidney. There are 2 additional tiny less than 3 mm calculi in upper/midpole left kidney . No evidence hydronephrosis. . VASCULATURE: Unremarkable. No aortic aneurysm. BOWEL: Evaluation of the bowel is limited due to the lack of oral contrast material. . Questionable duodenal diverticulum. Mild infiltration changes seen in the mesenteries surrounding the descending and sigmoid colon. Rule out nonspecific inflammatory process. As mentioned in the Reproductive section of this report, there are infiltration changes in the pelvis that also surround the sigmoid colon which could be reactive - related to recent surgery however the possibility of infectious/inflammatory process of the sigmoid itself not excluded. Note also made of some very subtle infiltration changes in the Mesentery surrounding the descending colon. There are few scattered colonic diverticula APPENDIX: The appendix is not seen with certainty on this study. No obvious inflammatory changes. PERITONEUM: No gross free intraperitoneal air LYMPH NODES: Unremarkable. No enlarged lymph nodes. BLADDER: Urinary bladder is incompletely distended which may in part account for slight thick-walled appearance. Correlation with urinalysis to rule out cystitis. REPRODUCTIVE: Hysterectomy. There are infiltration changes seen in the mesenteric fat of the pelvis likely postoperative sequela. In addition, there is a ill-defined elliptical shaped approximately 2.4 cm low-attenuation focus in the left aspect of the pelvis adjacent the and posterior to the superior margin of the urinary bladder that may represent ovarian cyst however the possibility of postsurgical fluid collection cannot be excluded on this exam. Consider followup CT scan with oral and intravenous contrast material for further evaluation. BONES: No acute compression fractures no retropulsed fragments. OTHER FINDINGS: None. IMPRESSION: There are infiltration changes seen within the pelvis likely representing postoperative sequela of recent hysterectomy however the possibility of post surgical infectious changes cannot be excluded. Rule out peritonitis. There is also small hypodense some ill-defined low-attenuation focus in the left aspect of the pelvis that could represent ovarian cyst though postoperative Infiltration changes on mentioned above also surrounds sigmoid colon which again may be secondary post surgical sequela -reactive changes however possibility of infectious/inflammatory process of the sigmoid colon such is a diverticulitis not excluded. Small bilateral nonobstructing bilateral renal calculi. Suspect duodenal diverticulum. Consider followup CT scan with oral and intravenous contrast material. Rule out cystitis Preliminary report provided by overnight radiology service
== END 2017-12-11 07:46 | disposition home or self-care (01) ==
LOC: H.ER 01:16
DX: N39.0 Urinary tract infection, site not specified (principal); R10.9 Unspecified abdominal pain; I12.9 Hypertensive chronic kidney disease with stage 1 through stage 4 chronic kidney disease, or unspecified chronic kidney disease; N18.9 Chronic kidney disease, unspecified; D64.9 Anemia, unspecified
CPT/HCPCS: 74176; 80053; 81003; 85025; 96361; 96365; 96375; 99285; J0696; J1885; J2270; J7030

== ENCOUNTER 2017-12-29 14:48 | Observation (INO) | payer BC ==
[2017-12-29 14:48] VITALS: BMI 28.1
[2017-12-29] MEDS ORDERED: Sodium Chloride 0.9% 1,000 ML IV STA ×2 (16:24→22:25)
[2017-12-29 16:38] LABS: BASO % 0.4 % (0.0-2.0); EOS # 0.1 K/uL (0.0-0.7); EOS % 1.5 % (0.0-4.0); LYMPH # 1.3 K/uL (1.0-4.3); LYMPH % 23.7 % (20.0-40.0); MEAN CELL VOLUME 80.1 fl (81.0-99.0); MEAN CORPUSCULAR HEMOGLOBIN 25.6 pg (27.0-31.0); MEAN PLATELET VOLUME 8.2 fl (7.2-11.7); MONO # 0.4 K/uL (0.0-0.8); MONO % 6.5 % (0.0-10.0); NEUT # 3.8 K/uL (1.8-7.0); NEUT % 67.9 % (50.0-75.0); RBC 4.3 Mil/uL (3.80-5.20); RED CELL DISTRIBUTION WIDTH 16.7 % (11.5-14.5); WHITE BLOOD COUNT 5.5 K/uL (4.8-10.8)
--- NOTE | 2017-12-29 16:38 | ED PDOC ---
HPI: Abdomen Time Seen by Provider: 12/29/17 15:23 Chief Complaint (Nursing): Abdominal Pain Chief Complaint (Provider): Abdominal Pain History Per: Patient Onset/Duration Of Symptoms: Days Current Symptoms Are (Timing): Still Present Location Of Pain/Discomfort: LLQ Additional Complaint(s): 32 y/o female presents to the ED complaining of lower abdominal pain (llq>rlq) s /p hysterectomy on 11/25/2017. Patient reports he was seen at the clinic and advised to come to the ER for further evaluation including a CT. Patient also reports of nausea and vomiting for the past two days and diarrhea every day. Otherwise: (-) fever, (-) urinary symptoms. PMD: Emily Schaefer Past Medical History Reviewed: Historical Data, Nursing Documentation, Vital Signs Vital Signs: Last Vital Signs Temp 98.3 F 12/29/17 14:51 Pulse 78 12/29/17 14:51 Resp 18 12/29/17 14:51 BP 151/94 H 12/29/17 14:51 Pulse Ox 100 12/29/17 19:13 - Medical History PMH: Anemia, HTN, Kidney Stones (4 moths ago), Chronic Kidney Disease - Surgical History Surgical History: Appendectomy, Hernia Repair Other surgeries: Hysterectomy - Family History Family History: States: Unknown Family Hx - Home Medications Home Medications: Ambulatory Orders Medication Instructions Recorded Ibuprofen [Advil] 200 mg PO DAILY PRN 11/25/17 amLODIPine [Norvasc] 5 mg PO DAILY 11/25/17 levoFLOXacin [Levaquin] 500 mg PO DAILY #14 tab 12/11/17 traMADol [Ultram] 50 mg PO Q6 PRN #12 tab 12/11/17 - Allergies Allergies/Adverse Reactions: Allergies Allergy/AdvReac Type Severity Reaction Status Date / Time No Known Allergies Allergy Verified 12/29/17 15:00 Review of Systems ROS Statement: Except As Marked, All Systems Reviewed And Found Negative Gastrointestinal: Positive for: Nausea, Vomiting, Abdominal Pain (llq > rlq), Diarrhea Physical Exam - Reviewed Nursing Documentation Reviewed: Yes Vital Signs Reviewed: Yes - Physical Exam Comments: GENERAL APPEARANCE: Patient is awake, alert, oriented x 3, in mild painful distress. SKIN: Warm, dry; (-) cyanosis. EYES: (-) conjunctival pallor, (-) scleral icterus. ENMT: Mucous membranes moist. NECK: (-) tenderness, (-) stiffness, (-) lymphadenopathy. CHEST AND RESPIRATORY: (-) rales, (-) rhonchi, (-) wheezes; breath sounds equal bilaterally. HEART AND CARDIOVASCULAR: (-) irregularity; (-) murmur, (-) gallop. ABDOMEN AND GI: (-) distention. Bowel sounds active; (+) lower abdominal tenderness. (-) guarding, (-) rebound, (-) palpable masses, (-) CVA tenderness. EXTREMITIES: (-) deformity, (-) edema, (+) distal pulses. NEURO AND PSYCH: Mental status as above; (-) focal findings. - Laboratory Results Result Diagrams: 12/29/17 16:28 12/29/17 16:28 - ECG O2 Sat by Pulse Oximetry: 100 (RA) Pulse Ox Interpretation: Normal Medical Decision Making Medical Decision Making: Time: 1627 Plan: -- CT Abd/Pelvis PO & IV Contrast -- CMP -- Lipase -- ED Urine Dipstick -- CBC with differentials -- Sodium Chloride IV 1000 mls/hr -- Toradol 30 mg IVP -- Zofran Inj 4 mg IVP -- Urine Culture -- IV Insertion -- POC Urine Test -- HCG results were negative -- U-Dip results show positive blood and trace leuks -- Labs reviewed and wnl. 1909 Patient is drinking po contrast, CT still pending. 1939 Patient returned from CAT scan, she is complaining of continued abdominal pain. Patient medicated with morphine [address] results pending. 1999 Case endorsed to [facility] pending CT results. Scribe Attestation: Documented by Crow Barcenas acting as a scribe for Laura Almaguer PA-C. Provider Scribe Attestation: All medical record entries made by the Scribe were at my direction and personally dictated by me. I have reviewed the chart and agree that the record accurately reflects my personal performance of the history, physical exam, medical decision making, and the department course for this patient. I have also personally directed, reviewed, and agree with the discharge instructions and disposition. Disposition - Clinical Impression Clinical Impression: Abdominal pain - Disposition Disposition: Transfer of Care (Case endorsed to [facility] pending CT) Disposition Time: 20:00 Condition: STABLE Forms: [employer] (Haitian)
[2017-12-29 16:41] LABS: ALB/GLOB RATIO 1.3 (1.0-2.1); ALBUMIN 3.9 g/dL (3.5-5.0); ALT/SGPT 26 U/L (9-52); AST/SGOT 19 U/L (14-36); BLOOD UREA NITROGEN 12 mg/dl (7-17); CALCIUM 9.1 mg/dL (8.4-10.2); GFR AFRICAN-AMERICAN > 60; GFR NON-AFRICAN AMERICAN > 60
[2017-12-29] MEDS ORDERED: Iohexol 240 (50 ml) PO ONE (17:11)
[2017-12-29] MEDS ORDERED: Iohexol 240 (50 ml) ONE ×2 (17:27→17:36)
[2017-12-29] MEDS ORDERED: Sodium Chloride 0.9% 50 ML IV ONE (19:02)
[2017-12-29] MEDS ORDERED: Iohexol 300 100 ML IJ ONE (19:02)
--- NOTE | 2017-12-29 20:20 | ED PDOC ---
- Laboratory Results Result Diagrams: 12/29/17 16:28 12/29/17 16:28 - ECG O2 Sat by Pulse Oximetry: 99 Pulse Ox Interpretation: Normal Medical Decision Making Medical Decision Making: Case was signed out to signwriter from [facility]maguer pending CT results. CT abdomen and pelvis demonstrates bilateral stable nephrolithiasis with no acute finding. Case was discussed with Dr. Schaefer, patient's [employer]W [employer] who did hysterectomy 3 weeks ago. Patient still has persistent abdominal pain despite receiving Toradol and morphine earlier. He states to admit patient and start IV antibiotics and also order transvaginal ultrasound. Patient agrees with plan. Additional IV Toradol and morphine administered along with fluids. IV Zosyn also ordered. Disposition - Clinical Impression Clinical Impression: Intractable abdominal pain, UTI (urinary tract infection) - POA Present On Arrival: None - Disposition Disposition: Hospitalized as Observation Patient Disposition Time: 22:27 Condition: FAIR Additional Instructions: Take prescription meds as directed. Follow-up with Dr. Schaefer in office in 2- 3 days. Results - Lab Results Lab Results: 12/29/17 12/29/17 12/29/17 18:04 17:13 16:28 WBC RBC Hgb Hct MCV MCH MCHC RDW Plt Count MPV Neut % (Auto) Lymph % (Auto) [place] % (Auto) Eos % (Auto) Baso % (Auto) Neut # (Auto) Lymph # (Auto) [place] # (Auto) Eos # (Auto) Baso # (Auto) Sodium 140 Potassium 4.4 Chloride 107 Carbon Dioxide 24 Anion Gap 13 BUN 12 Creatinine 0.6 L Est GFR ( Amer) > 60 Est GFR (Non-Af Amer) > 60 Random Glucose 91 Calcium 9.1 Total Bilirubin 0.3 AST 19 ALT 26 Alkaline Phosphatase 75 Total Protein 6.9 Albumin 3.9 Globulin 2.9 Albumin/Globulin Ratio 1.3 Lipase 151 TSH 3rd Generation 1.83 12/29/17 16:28 WBC 5.5 RBC 4.30 Hgb 11.0 L Hct 34.5 MCV 80.1 L MCH 25.6 L MCHC 32.0 L RDW 16.7 H Plt Count 224 D MPV 8.2 Neut % (Auto) 67.9 Lymph % (Auto) 23.7 [place] % (Auto) 6.5 Eos % (Auto) 1.5 Baso % (Auto) 0.4 Neut # (Auto) 3.8 Lymph # (Auto) 1.3 [place] # (Auto) 0.4 Eos # (Auto) 0.1 Baso # (Auto) 0.0 Sodium Potassium Chloride Carbon Dioxide Anion Gap BUN Creatinine Est GFR ( Amer) Est GFR (Non-Af Amer) Random Glucose Calcium Total Bilirubin AST ALT Alkaline Phosphatase Total Protein Albumin Globulin Albumin/Globulin Ratio Lipase TSH 3rd Generation
[2017-12-29] MEDS ORDERED: Piperacillin/Tazobact 3.375 gm Inj IVPB STA (22:24)
[2017-12-29] MEDS ORDERED: Morphine 4 MG/ML VIAL IVP STA (22:25)
[2017-12-29] MEDS ORDERED: Piperacillin/Tazobact 3.375 GM in Sodium Chloride 0.9% 100 ML IVPB STA (22:27)
[2017-12-29] MEDS ORDERED: Morphine 4 MG/ML VIAL ONE (22:32)
[2017-12-29] MEDS ORDERED: Piperacillin/Tazobact 3.375 gm Inj IVPB ONE (22:34)
--- NOTE | 2017-12-30 09:49 | CT ---
Date of service: 12/29/2017 PROCEDURE: CT Abdomen and Pelvis with contrast HISTORY: lower abd pain, s/p hysterectomy 11/22 COMPARISON: None. TECHNIQUE: Following oral and intravenous contrast administration, a CT examination of the abdomen and pelvis performed from the domes of the diaphragms to the symphysis pubis with reformatted datasets provided not only axial but also sagittal and coronal series. Contrast dose: Omnipaque 300, 95 cc Radiation dose: Total exam DLP = 497.62 mGy-cm. This CT exam was performed using one or more of the following dose reduction techniques: Automated exposure control, adjustment of the mA and/or kV according to patient size, and/or use of iterative reconstruction technique. FINDINGS: LOWER THORAX: Unremarkable. LIVER: There is a tiny cyst at the dome of the liver 7 mm greatest dimension with remainder of liver remarkable for a hyper dense lesion at the medial right lobe measuring 3.4 x 2.6 cm dating back at least to prior abdomen pelvis CT with contrast 12/27/2011 but is likely represents arteriovenous shunting or benign lesion. The remainder of the liver appears unremarkable. GALLBLADDER AND BILE DUCTS: Unremarkable. PANCREAS: Unremarkable. No gross lesion or ductal dilatation. SPLEEN: Unremarkable. ADRENALS: Unremarkable. No mass. KIDNEYS AND URETERS: Stable limited bilateral intrarenal calculi identified with no obstructive uropathy evident bilaterally. No delayed nephrogram bilaterally. VASCULATURE: Unremarkable. No aortic aneurysm. BOWEL: There is no bowel obstruction identified. Collapse of the distal large bowel limits interpretation. APPENDIX: Not identified. No CT evidence to suggest appendicitis. PERITONEUM: Unremarkable. No free fluid. No free air. LYMPH NODES: Unremarkable. No enlarged lymph nodes. BLADDER: Unremarkable. REPRODUCTIVE: Prior hysterectomy reiterated. Possible dominant follicle left ovary noted. BONES: No acute fracture. OTHER FINDINGS: None. IMPRESSION: 1. No interval acute abdominal or pelvic findings appreciated. 2. Stable cyst dome right lobe liver with benign subtle enhancement of a lesion in the right lobe unchanged in the interval, likely reflecting arteriovenous shunting or benign lesion dating back to [address] at least. 3. A few nonobstructing intrarenal calculi are again seen at the bilateral kidneys. 4. Diminished postoperative change status post prior hysterectomy. No abscess ascites or free intrarenal gas identified at this time. [facility] preliminary report, 12/29/2017.
[2017-12-30] MEDS: Sodium Chloride 0.9% 1,000 ML IV SCH ×2 (11:22→17:13)
--- NOTE | 2017-12-30 11:42 | US ---
Date of service: 12/29/2017 HISTORY: pelvic pain, s/p hysterectomy 3 weeks ago COMPARISON: 08/02/2017. TECHNIQUE: Transvaginal only. Real -time technique with 2D, duplex and color Doppler FINDINGS: Status post hysterectomy 3 weeks ago. The adnexa are not visualized. OTHER FINDINGS: No abnormal fluid collections masses or other findings of consequence. IMPRESSION: Status post hysterectomy. Nonvisualization of the adnexa. No suspicious masses or fluid collections identified. Concordant results (preliminary interpretation) provided by [facility]. Procedure Completed: 23:06 Preliminary ([facility]) Report: Dictated and Authenticated: 23:42. Final Interpretation: 11:40. December 30, 2017.
[2017-12-30] MEDS ORDERED: Bupivacaine HCl 0.25% PF (30 ml) Inj ONE (16:51)
[2017-12-30] MEDS ORDERED: cefOXitin IV 1 gm in Dextrose 0 GM/0 ML BAG IVPB ONE (16:52)
[2017-12-30 16:54] VITALS: RESP 18
[2017-12-30] MEDS ORDERED: Propofol 10 mg/ml Inj (20 ML) ONE (17:15)
[2017-12-30] MEDS ORDERED: Rocuronium 10 mg/ml (5 ml) ONE (17:15)
[2017-12-30] MEDS ORDERED: Midazolam 2 MG/2 ML VIAL ONE (17:15)
[2017-12-30] MEDS ORDERED: Succinylcholine 200 mg/10 ml Inj IV ONE (17:16)
[2017-12-30] MEDS ORDERED: Lidocaine 4% (Laryng-O-Jet) Kit MM ONE (17:58)
[2017-12-30] MEDS ORDERED: Dexamethasone 4 mg/1 ml ONE (17:58)
[2017-12-30] MEDS ORDERED: Lactated Ringer's 1,000 ML IV ONE ×3 (18:26→20:16)
[2017-12-30] MEDS ORDERED: Neostigmine 1:1000 (1 mg/ml) Inj ONE (19:04)
[2017-12-30] MEDS ORDERED: HYDROmorphone 0.5 mg/0.5 ml ISec IVP PRN (19:22)
[2017-12-30] MEDS ORDERED: Lactated Ringer's 1,000 ML IV SCH (19:30)
[2017-12-30 23:43] VITALS: O2SAT 98
[2017-12-31 06:55] LABS: HEMOGLOBIN 11.7 g/dL (12.0-16.0); MEAN CELL VOLUME 78.3 fl (81.0-99.0); MEAN CORPUSCULAR HEMOGLOBIN 26.1 pg (27.0-31.0); MEAN CORPUSCULAR HGB CONC 33.4 g/dL (33.0-37.0); RBC 4.47 Mil/uL (3.80-5.20); WHITE BLOOD COUNT 5.8 K/uL (4.8-10.8)
[2017-12-31 08:15] VITALS: BP 114/74; PULSE 60; TEMP 98.1
--- NOTE | 2017-12-31 11:54 | CP.PCM.HP ---
History of Present Illness - History of Present Illness History of Present Illness: The patient is a 32-year-old status post robotic-assisted hysterectomy on November 25. Patient presented to the office on November 26 complaining of abdominal pain patient had reported being in the emergency room where CT scan was performed and patient was discharged home. The office patient reported lower abdominal discomfort stabbing in nature aggravated by ambulation some improvement with Percocet. Patient denied any vaginal bleeding any incontinence dysuria. Present on Admission - Present on Admission Any Indicators Present on Admission: No Past Patient History - Past Medical History & Family History Past Medical History?: Yes - Past Social History Smoking Status: Never Smoked - CARDIAC Hx Cardiac Disorders: Yes Hx Hypertension: Yes - PULMONARY Hx Respiratory Disorders: No - NEUROLOGICAL Hx Neurological Disorder: No - HEENT Hx HEENT Problems: No - RENAL Hx Chronic Kidney Disease: Yes - ENDOCRINE/METABOLIC Hx Endocrine Disorders: No - HEMATOLOGICAL/ONCOLOGICAL Hx Blood Disorders: Yes Hx Anemia: Yes - INTEGUMENTARY Hx Dermatological Problems: No - MUSCULOSKELETAL/RHEUMATOLOGICAL Hx Musculoskeletal Disorders: No Hx Falls: No - GASTROINTESTINAL Hx Gastrointestinal Disorders: No - GENITOURINARY/GYNECOLOGICAL Hx Genitourinary Disorders: Yes Other/Comment: fibroids - PSYCHIATRIC Hx Psychophysiologic Disorder: No Hx Substance Use: No - SURGICAL HISTORY Hx Surgeries: Yes Hx Appendectomy: Yes Hx Section: (2000, 2002) Hx Herniorrhaphy: Yes (2014) Other/Comment: Tubal Ligation - ANESTHESIA Hx Anesthesia: Yes Hx Anesthesia Reactions: No Hx Malignant Hyperthermia: No Has any member of the family had a problem w/ anesthesia?: No Meds Allergies/Adverse Reactions: Allergies Allergy/AdvReac Type Severity Reaction Status Date / Time No Known Allergies Allergy Verified 12/29/17 15:00 Physical Exam - Head Exam Head Exam: ATRAUMATIC - Respiratory Exam Respiratory Exam: Clear to Auscultation Bilateral - Cardiovascular Exam Cardiovascular Exam: REGULAR RHYTHM - GI/Abdominal Exam GI & Abdominal Exam: Normal Bowel Sounds - Rectal Exam Additional comments: Abdomen was tender to deep palpation some guarding no rebound positive bowel sounds - Exam Additional comments: Pelvic exam normal external female genitalia urethra normal vaginal cuff was noted to be intact scant exudate noted at the cervical cuff tenderness upon mobilization of the vaginal cuff no adnexal masses appreciated Results - Vital Signs Recent Vital Signs: Last Vital Signs Temp 98.1 F 12/31/17 08:15 Pulse 60 12/31/17 10:11 Resp 18 12/31/17 08:15 BP 114/74 12/31/17 10:11 Pulse Ox 98 12/31/17 08:15 - Labs Result Diagrams: 12/31/17 05:30 12/29/17 16:28 Labs: Laboratory Results - last 24 hr 12/31/17 05:30 WBC 5.8 RBC 4.47 Hgb 11.7 L Hct 35.0 MCV 78.3 L MCH 26.1 L MCHC 33.4 RDW 16.0 H Plt Count 225 Assessment & Plan - Assessment and Plan (Free Text) Assessment: Abdominal pain Plan: Abdominal pain CT scan of the abdomen UA Antibiotics for cuff cellulitis Observation, and NPO
--- NOTE | 2017-12-31 11:59 | CP.SDSHP ---
Same Day Surgery H & P - Allergies Allergies: Allergies No Known Allergies Allergy (Verified 12/29/17 15:00) - Physical Exam Vital Signs: Vital Signs 12/31/17 12/31/17 08:15 10:11 Temperature 98.1 F Pulse Rate 60 60 Respiratory 18 Rate Blood Pressure 114/74 114/74 O2 Sat by Pulse 98 Oximetry Short Stay Discharge - Short Stay Discharge Admitting Diagnosis/Reason for Visit: INTRACTABLE PELVIC PAIN Referrals: Emily Schaefer MD [Staff Provider] - Fab Macias MD [Family Provider] - Instructions: Acute Abdominal Pain (DC) Additional Instructions (Diet, Activity): Take prescription meds as directed. Follow-up with Dr. Schaefer in office in 2- 3 days. Progress Note/Discharge Note with Instructions: Patient doing well that is post diagnostic laparoscopy Patient cleared for discharge Nothing per vagina Follow-up with Cielo Schaefer in 1 week
--- NOTE | 2018-01-02 08:25 | OP ---
Copied To: Emily Schaefer MD Attending MD: Emily Schaefer MD PROCEDURE DATE: 12/30/17 PREOPERATIVE DIAGNOSIS: Persistent abdominal pain, refractory to pain medicines. POSTOPERATIVE DIAGNOSIS: Persistent abdominal pain, refractory to pain medicines. OPERATION PERFORMED: Diagnostic laparoscopy. SURGEON: Emily Schaefer MD IMPORT DISPATCHER: Gillian Ridley MD. She was helpful in creating exposure, retraction, and closure of the patient. The procedure would not have been possible without her assistance. ANESTHESIA ADMINISTERED BY: Chris Manule MD ESTIMATED BLOOD LOSS: Minimal. URINE OUTPUT: The patient had a Rosado catheter. Urine output was approximately 400 mL of clear urine. OPERATIVE FINDINGS: Closed vaginal cuff, normal ovaries, no infectious process identified. COMMENTS: The patient presented to the office on 12/26/2017, complaining of abdominal pain. The patient was status post robotic-assisted hysterectomy on 11/25/2016. The patient states she had been to the emergency room, had a CAT scan performed and was discharged home. In the office, the patient was examined, was noted to have some purulent material at the vaginal cuff, diagnosed at that time was a cuff cellulitis. The patient was given antibiotics. She was instructed to follow up in 48 hours. The patient returned upon 40 hours, reported no improvement in symptoms. The patient was referred back to the emergency room for repeat CT scan of the abdomen and pelvis, which revealed normal results. The patient continued to complain of intractable pain, decision for laparoscopy was made. The patient was informed of the risks, benefits, and alternatives of the surgery and she agreed to the plan of care. DESCRIPTION OF PROCEDURE: The patient was taken to the operating room where she was given general anesthesia. She was placed in the dorsal lithotomy position. She was prepped and draped in the normal sterile fashion. An exam under anesthesia revealed scant vaginal discharge, purulent. Vaginal cuff was examined and noted to be intact. Attention was then turned to the abdomen, where a 5-mm incision was made at Alcocer's point and a Veress needle was inserted in the abdomen. The abdomen was then insufflated to 15 mmHg. The Veress needle was removed and the 5-mm port was introduced into the abdominal cavity. An additional port was placed approximately 5 cm superior to the right anterior iliac crest. It was placed under direct visualization. The abdomen was then surveyed. The vaginal cuff was noted to be intact. There was no purulent material, no exudates. Both ovaries were identified. The liver was examined. There was no infectious process noted intra-abdominally. Photo marker graphs were taken for documentation. After the abdomen was explored, the procedure was then terminated. The patient was awakened from general anesthesia and taken to the recovery room in awake and stable condition. Emily Schaefer MD
== END 2017-12-31 14:12 | disposition home or self-care (01) ==
LOC: H.ER 14:48 → H.ERHOLD 22:45 → H.MEDSURG1 12-30 00:36
PROVIDERS: ADMIT Obstetrics & Gynecology Gynecology; ATTEND Obstetrics & Gynecology Gynecology
DX: L03.818 Cellulitis of other sites (principal); I12.9 Hypertensive chronic kidney disease with stage 1 through stage 4 chronic kidney disease, or unspecified chronic kidney disease; Z87.442 Personal history of urinary calculi; N18.9 Chronic kidney disease, unspecified
CPT/HCPCS: 36415; 49320; 74177; 76830; 80053; 81025; 83690; 84443; 85025; 85027; 87086; 96374; 99284; G0378; J0330; J0690; J1100; J1885; J2001; J2250; J2270; J2405; J2543; J2704; J2710; J2765; J3010; J7030; J7120; Q9966; Q9967